=== PATIENT | male | born 1965 | race Caucasian/White ===

== ENCOUNTER 2018-09-16 21:37 | Inpatient (IN) | payer OTHER ==
[~2018-09-16] VITALS: Ht 180.3 cm; Wt 114.8 kg
[2018-09-17] VITALS (13 sets, daily range): BP systolic 118–154; BP diastolic 79–100
[2018-09-17] MEDS ORDERED: SODIUM CHLORIDE 0.9% 1000ML 1,000 ML IV SCH (02:29)
[2018-09-17] MEDS ORDERED: DEXTROSE 50%-WATER 50 ML DISP.SYRIN IV PRN (02:30)
[2018-09-17] MEDS ORDERED: GLUCAGON 1MG KIT 1 MG ML IM PRN (02:30)
[2018-09-17] MEDS ORDERED: ONDANSETRON HCL 4 MG/2 ML VIAL IV PRN (02:30)
[2018-09-17] MEDS ORDERED: ENOX40DI9 SQ (02:54)
[2018-09-17] MEDS ORDERED: MULT-1203 PO (02:54)
[2018-09-17] MEDS ORDERED: PIPE3.3712 IV (02:54)
[2018-09-17] MEDS ORDERED: DILT30TA3 PO (02:54)
[2018-09-17] MEDS ORDERED: FOLI1TAB15 PO (02:54)
[2018-09-17] MEDS ORDERED: WARF-57 PO (02:54)
[2018-09-17] MEDS ORDERED: METO50TA18 PO (02:54)
[2018-09-17] MEDS ORDERED: THIAM100TB PO (02:54)
[2018-09-17] MEDS ORDERED: VANC1IVPB IV (02:54)
[2018-09-17] MEDS ORDERED: WARF10TA45 PO (02:55)
[2018-09-17] MEDS ORDERED: ONDA4VIA22 IV (03:07)
[2018-09-17] MEDS ORDERED: LORA2VIA8 IV ×2 (03:07)
[2018-09-17] MEDS ORDERED: ACET325T51 PO (03:07)
[2018-09-17] MEDS ORDERED: [UNRECOGNIZED DRUG - OTHER] TP (03:07)
[2018-09-17] MEDS ORDERED: VANCOMYCIN 1GM+NS 250ML IV SCH (03:30)
[2018-09-17] MEDS ORDERED: LORAZEPAM 2 MG/ML 1 ML VIAL IVP PRN ×2 (03:30)
[2018-09-17 04:05] LABS: HEMATOCRIT 42.9 % (42-54); MEAN CORPUSCULAR HEMOGLOBIN 32.1 pg (27.0-33.0); MEAN CORPUSCULAR HGB CONC 33.8 g/dL (32.0-36.0); MEAN CORPUSCULAR VOLUME 95.1 fL (79-99); PLATELET COUNT (AUTO) 360 K/uL (130-400); RED CELL DISTRIBUTION WIDTH 12.9 % (11.0-15.5)
[2018-09-17 04:23] LABS: INR 1.03 (0.85-1.15); PARTIAL THROMBOPLASTIN TIME 30.1 SEC (26.3-35.5); PROTHROMBIN TIME 10.8 SEC (9.6-11.6)
[2018-09-17 04:33] LABS: ALBUMIN 2.2 g/dL (3.5-5.0); BILIRUBIN,TOTAL 0.3 mg/dL (0.2-1.0); CREATININE 1.2 mg/dL (0.5-1.5); MAGNESIUM 1.3 mg/dL (1.80-2.40); POTASSIUM 3.5 mmol/L (3.5-5.1); TOTAL PROTEIN, SERUM 7.1 g/dL (6.0-8.3)
[2018-09-17] MEDS: VANCOMYCIN 1GM+NS 250ML 250 ML IV SCH ×2 (05:11→22:09)
[2018-09-17] MEDS: ZOSYN 3.375GM+NS 50ML 50 ML IV SCH ×4 (05:37→22:19)
[2018-09-17] MEDS ORDERED: VANCOMYCIN PROTOCOL PER PHARMACY IV SCH (05:45)
[2018-09-17] MEDS: INSULIN HUMULIN R 100 UNIT/ML 3ML SQ SCH ×2 (05:54→22:27)
[2018-09-17] MEDS: DILTIAZEM HCL 60 MG TABLET PO SCH ×3 (05:54→22:16)
[2018-09-17] MEDS: FOLIC ACID 1 MG TABLET PO SCH (08:49)
[2018-09-17] MEDS: PANTOPRAZOLE SODIUM 40 MG TABLET.DR PO SCH (08:50)
[2018-09-17] MEDS: MULTIVITAMIN TABLET PO SCH (08:50)
[2018-09-17] MEDS: THIAMINE HCL 100 MG TABLET PO SCH (08:50)
[2018-09-17] MEDS ORDERED: FAMOTIDINE 20MG TAB 20 MG TAB PO SCH (09:00)
[2018-09-17] MEDS ORDERED: METOPROLOL TARTRATE 50 MG TAB PO SCH (09:00)
[2018-09-17] MEDS ORDERED: LIDOCAINE HCL 2% 20ML ONE (09:40)
[2018-09-17] MEDS ORDERED: MIDAZOLAM HCL 1 MG/ML 2ML VIAL ONE ×3 (10:23→10:43)
[2018-09-17] MEDS ORDERED: MEPERIDINE-PF 25 MG/ML SYG ONE ×3 (10:23→10:43)
[2018-09-17] MEDS ORDERED: RIVAROXABAN 20 MG TABLET PO SCH (19:00)
[2018-09-17] MEDS ORDERED: WARFARIN SODIUM 10 MG TABLET PO SCH (21:00)
[2018-09-18] MEDS: DILTIAZEM HCL 60 MG TABLET PO SCH ×2 (01:13→05:22)
[2018-09-18 04:00] VITALS: BP 131/83
[2018-09-18] MEDS: VANCOMYCIN 1GM+NS 250ML 250 ML IV SCH ×2 (04:30→05:21)
[2018-09-18 05:03] LABS: EOSINOPHILS % (AUTO) 4.3 % (0.0-8.0); HEMATOCRIT 38.6 % (42-54); LYMPHOCYTES % (AUTO) 17.4 % (21.0-51.0); MEAN CORPUSCULAR HEMOGLOBIN 32.1 pg (27.0-33.0); MEAN CORPUSCULAR HGB CONC 33.7 g/dL (32.0-36.0); MEAN CORPUSCULAR VOLUME 95.3 fL (79-99); MONOCYTES % (AUTO) 9.7 % (3.0-13.0); NEUTROPHILS % (AUTO) 67.6 % (40.0-77.0); PLATELET COUNT (AUTO) 299 K/uL (130-400); RED BLOOD CELL COUNT(AUTO) 4.05 MIL/uL (4.50-6.20); WHITE BLOOD COUNT (AUTO) 10.7 K/uL (4.8-10.8)
[2018-09-18] MEDS: ZOSYN 3.375GM+NS 50ML 50 ML IV SCH ×2 (05:21→05:33)
[2018-09-18 05:26] LABS: ALBUMIN 2.2 g/dL (3.5-5.0); BILIRUBIN,DIRECT 0.1 mg/dL (0.0-0.3); BILIRUBIN,TOTAL 0.5 mg/dL (0.2-1.0); CREATININE 2.6 mg/dL (0.5-1.5); MAGNESIUM 1.4 mg/dL (1.80-2.40); POTASSIUM 3.7 mmol/L (3.5-5.1); TOTAL PROTEIN, SERUM 6.7 g/dL (6.0-8.3)
[2018-09-18] MEDS: INSULIN HUMULIN R 100 UNIT/ML 3ML SQ SCH ×4 (06:22→21:00)
[2018-09-18] MEDS: MAGNESIUM 2GM PREMIX 50ML 50 ML IV PRN (06:35)
[2018-09-18 07:33] VITALS: BP 138/92
[2018-09-18] MEDS: ACETAMINOPHEN 325 MG TAB PO PRN ×2 (08:12→18:40)
[2018-09-18 09:29] LABS: INR 1.18 (0.85-1.15); PARTIAL THROMBOPLASTIN TIME 37.3 SEC (26.3-35.5); PROTHROMBIN TIME 12.3 SEC (9.6-11.6)
[2018-09-18] MEDS: METOPROLOL TARTRATE 25 MG TAB PO SCH ×2 (10:12→19:49)
[2018-09-18] MEDS: PANTOPRAZOLE SODIUM 40 MG TABLET.DR PO SCH (10:12)
[2018-09-18] MEDS: THIAMINE HCL 100 MG TABLET PO SCH (10:12)
[2018-09-18] MEDS: FOLIC ACID 1 MG TABLET PO SCH (10:12)
[2018-09-18] MEDS: MULTIVITAMIN TABLET PO SCH (10:12)
[2018-09-18] MEDS: ENOXAPARIN SODIUM 120 MG/0.8ML SQ SCH (10:13)
[2018-09-18 11:23] VITALS: BP 142/92
[2018-09-18] MEDS: WARFARIN SODIUM 5 MG TAB PO SCH (16:09)
[2018-09-18 16:45] VITALS: BP 148/98
[2018-09-18] MEDS: CEFTRIAXONE SODIUM 1 GM IVP SCH (17:27)
[2018-09-18] MEDS: SODIUM CHLORIDE 0.9% 1000ML 1,000 ML IV SCH (17:28)
[2018-09-18 20:23] VITALS: BP 188/112
[2018-09-18] MEDS ORDERED: ZOSYN 3.375GM+NS 50ML 50 ML IV SCH (21:00)
[2018-09-18] MEDS: INSULIN GLARGINE 100 UNITS/ML 10 ML VIAL SQ SCH (21:35)
[2018-09-18] MEDS ORDERED: HYDRALAZINE HCL 20 MG/ML VIAL ONE (22:11)
[2018-09-18 23:32] VITALS: BP 150/94
[2018-09-18] MEDS: DIAZEPAM 2 MG TAB PO PRN (23:51)
[2018-09-19 04:08] VITALS: BP 158/98
[2018-09-19 04:16] LABS: INR 1.05 (0.85-1.15)
[2018-09-19 04:43] LABS: CREATININE 3.2 mg/dL (0.5-1.5); CRP QUANTITATIVE 40.4 mg/L (0.00-9.0); POTASSIUM 3.6 mmol/L (3.5-5.1)
[2018-09-19] MEDS: INSULIN HUMULIN R 100 UNIT/ML 3ML SQ SCH ×5 (06:49→21:00)
[2018-09-19] MEDS: SODIUM CHLORIDE 0.9% 1000ML 1,000 ML IV SCH ×2 (06:51→13:40)
[2018-09-19 07:30] VITALS: BP_SYST 156; BP_SYST 175; BP_DIAS 104; BP_DIAS 95
[2018-09-19] MEDS: METOPROLOL TARTRATE 25 MG TAB PO SCH ×2 (07:41→22:24)
[2018-09-19] MEDS: ENOXAPARIN SODIUM 120 MG/0.8ML SQ SCH (07:41)
[2018-09-19] MEDS: FOLIC ACID 1 MG TABLET PO SCH (07:41)
[2018-09-19] MEDS: MULTIVITAMIN TABLET PO SCH (07:42)
[2018-09-19] MEDS: PANTOPRAZOLE SODIUM 40 MG TABLET.DR PO SCH (07:42)
[2018-09-19] MEDS: DIAZEPAM 2 MG TAB PO PRN (07:42)
[2018-09-19] MEDS: THIAMINE HCL 100 MG TABLET PO SCH (07:42)
[2018-09-19] MEDS: ACETAMINOPHEN 325 MG TAB PO PRN (07:42)
[2018-09-19] MEDS ORDERED: [UNRECOGNIZED DRUG - OTHER] TP PRN (09:00)
[2018-09-19 09:40] LABS: PARTIAL THROMBOPLASTIN TIME 35.1 SEC (26.3-35.5)
[2018-09-19 09:55] LABS: INR 1.06 (0.85-1.15); PROTHROMBIN TIME 11.1 SEC (9.6-11.6)
[2018-09-19] MEDS: DIAZEPAM 5 MG TABLET ONE ×2 (10:26→10:32)
[2018-09-19] MEDS: GUAIFENESIN-CODEINE 5 ML SYRUP PO PRN ×2 (10:32→16:49)
[2018-09-19] MEDS ORDERED: DIAZEPAM 5 MG TABLET PO SCH (10:45)
[2018-09-19 11:13] VITALS: BP 157/95
[2018-09-19 16:23] VITALS: BP 175/94
[2018-09-19] MEDS: CEFTRIAXONE SODIUM 1 GM IVP SCH (16:48)
[2018-09-19] MEDS: WARFARIN SODIUM 5 MG TAB PO SCH (16:51)
[2018-09-19] MEDS: DIAZEPAM 5 MG TABLET PO SCH (17:01)
[2018-09-19 20:02] VITALS: BP 184/102
[2018-09-19] MEDS: DIAZEPAM 2 MG TAB PO SCH (20:30)
[2018-09-19] MEDS ORDERED: VANCOMYCIN 1GM+NS 250ML 250 ML IV SCH (21:00)
[2018-09-19] MEDS: INSULIN GLARGINE 100 UNITS/ML 10 ML VIAL SQ SCH (22:29)
[2018-09-19 23:47] VITALS: BP 184/113
[2018-09-20] MEDS: DIAZEPAM 5 MG TABLET PO SCH ×3 (00:34→16:46)
[2018-09-20] MEDS: SODIUM CHLORIDE 0.9% 1000ML 1,000 ML IV SCH ×2 (02:41→14:30)
[2018-09-20] MEDS: DIAZEPAM 2 MG TAB PO SCH ×2 (02:42→12:21)
[2018-09-20 04:05] VITALS: BP 151/104
[2018-09-20 04:33] LABS: HEMATOCRIT 39.8 % (42-54); MEAN CORPUSCULAR HEMOGLOBIN 30.7 pg (27.0-33.0); MEAN CORPUSCULAR HGB CONC 32.3 g/dL (32.0-36.0); MEAN CORPUSCULAR VOLUME 94.8 fL (79-99); PLATELET COUNT (AUTO) 321 K/uL (130-400); RED CELL DISTRIBUTION WIDTH 13.2 % (11.0-15.5); WHITE BLOOD COUNT (AUTO) 13.1 K/uL (4.8-10.8)
[2018-09-20 04:44] LABS: INR 1.06 (0.85-1.15); PARTIAL THROMBOPLASTIN TIME 33.9 SEC (26.3-35.5); PROTHROMBIN TIME 10.9 SEC (9.6-11.6)
[2018-09-20 04:58] LABS: CREATININE 2.9 mg/dL (0.5-1.5); MAGNESIUM 1.6 mg/dL (1.80-2.40); PHOSPHORUS 3.5 mg/dL (2.5-4.9); POTASSIUM 3.7 mmol/L (3.5-5.1)
[2018-09-20] MEDS: MAGNESIUM 2GM PREMIX 50ML 50 ML IV PRN (05:29)
[2018-09-20] MEDS: GUAIFENESIN-CODEINE 5 ML SYRUP PO PRN (05:53)
[2018-09-20] MEDS: INSULIN HUMULIN R 100 UNIT/ML 3ML SQ SCH ×4 (06:37→22:22)
[2018-09-20] MEDS: MULTIVITAMIN TABLET PO SCH (08:14)
[2018-09-20] MEDS: THIAMINE HCL 100 MG TABLET PO SCH (08:14)
[2018-09-20] MEDS: FOLIC ACID 1 MG TABLET PO SCH (08:14)
[2018-09-20 08:15] VITALS: BP 155/99
[2018-09-20] MEDS: METOPROLOL TARTRATE 25 MG TAB PO SCH ×2 (08:16→22:19)
[2018-09-20] MEDS: ENOXAPARIN SODIUM 120 MG/0.8ML SQ SCH (08:16)
[2018-09-20] MEDS: PANTOPRAZOLE SODIUM 40 MG TABLET.DR PO SCH (08:16)
[2018-09-20 09:20] LABS: INR 1.05 (0.85-1.15); PARTIAL THROMBOPLASTIN TIME 37.3 SEC (26.3-35.5)
[2018-09-20 11:42] VITALS: BP 158/102
[2018-09-20 16:00] VITALS: BP 137/83
[2018-09-20] MEDS: CEFTRIAXONE SODIUM 1 GM IVP SCH (16:46)
[2018-09-20] MEDS: WARFARIN SODIUM 5 MG TAB PO SCH (16:46)
[2018-09-20 21:21] VITALS: BP 153/100
[2018-09-20] MEDS: INSULIN GLARGINE 100 UNITS/ML 10 ML VIAL SQ SCH (22:21)
[2018-09-20] MEDS: ACETAMINOPHEN 325 MG TAB PO PRN (22:27)
[2018-09-21] VITALS (9 sets, daily range): BP systolic 145–182; BP diastolic 76–110
[2018-09-21] MEDS: DIAZEPAM 5 MG TABLET PO SCH ×3 (01:17→16:45)
[2018-09-21] MEDS: SODIUM CHLORIDE 0.9% 1000ML 1,000 ML IV SCH ×2 (02:44→10:30)
[2018-09-21 04:37] LABS: CREATININE 2.9 mg/dL (0.5-1.5); CRP QUANTITATIVE 166.8 mg/L (0.00-9.0); MAGNESIUM 2.1 mg/dL (1.80-2.40); PHOSPHORUS 3.6 mg/dL (2.5-4.9); POTASSIUM 3.5 mmol/L (3.5-5.1)
[2018-09-21 04:38] LABS: HEMATOCRIT 35.9 % (42-54); MEAN CORPUSCULAR HEMOGLOBIN 32.5 pg (27.0-33.0); MEAN CORPUSCULAR HGB CONC 34.2 g/dL (32.0-36.0); MEAN CORPUSCULAR VOLUME 95.1 fL (79-99); PLATELET COUNT (AUTO) 375 K/uL (130-400); RED BLOOD CELL COUNT(AUTO) 3.77 MIL/uL (4.50-6.20); RED CELL DISTRIBUTION WIDTH 12.8 % (11.0-15.5); WHITE BLOOD COUNT (AUTO) 11.6 K/uL (4.8-10.8)
[2018-09-21 04:39] LABS: INR 1.08 (0.85-1.15); PARTIAL THROMBOPLASTIN TIME 35.1 SEC (26.3-35.5); PROTHROMBIN TIME 11.1 SEC (9.6-11.6)
[2018-09-21 05:33] LABS: ERYTHROCYTE SEDIMENTATION RATE 101 MM/HR (0-20)
[2018-09-21] MEDS: INSULIN HUMULIN R 100 UNIT/ML 3ML SQ SCH ×4 (06:30→20:36)
[2018-09-21] MEDS: ENOXAPARIN SODIUM 120 MG/0.8ML SQ SCH (08:06)
[2018-09-21] MEDS: MULTIVITAMIN TABLET PO SCH (08:06)
[2018-09-21] MEDS: FOLIC ACID 1 MG TABLET PO SCH (08:06)
[2018-09-21] MEDS: PANTOPRAZOLE SODIUM 40 MG TABLET.DR PO SCH (08:06)
[2018-09-21] MEDS: THIAMINE HCL 100 MG TABLET PO SCH (08:06)
[2018-09-21] MEDS: METOPROLOL TARTRATE 25 MG TAB PO SCH ×2 (08:07→20:22)
[2018-09-21 09:31] LABS: INR 1.07 (0.85-1.15); PARTIAL THROMBOPLASTIN TIME 39.5 SEC (26.3-35.5); PROTHROMBIN TIME 11.2 SEC (9.6-11.6)
[2018-09-21] MEDS: HYDRALAZINE HCL 20 MG/ML VIAL IV PRN (13:49)
[2018-09-21] MEDS: ACETAMINOPHEN 325 MG TAB PO PRN (15:13)
[2018-09-21] MEDS: WARFARIN SODIUM 5 MG TAB PO SCH (16:20)
[2018-09-21] MEDS: GUAIFENESIN-CODEINE 5 ML SYRUP PO PRN (16:34)
[2018-09-21] MEDS: CEFTRIAXONE SODIUM 1 GM IVP SCH (18:03)
[2018-09-21] MEDS ORDERED: WARFARIN SODIUM 2.5 MG TAB PO ONE (19:45)
[2018-09-21] MEDS: LUBIPROSTONE 24 MCG CAP PO SCH (20:21)
[2018-09-21] MEDS: AMOXICILLIN/POTASSIUM CLAV 875-125 TABLET PO SCH (20:21)
[2018-09-21] MEDS: INSULIN GLARGINE 100 UNITS/ML 10 ML VIAL SQ SCH (20:40)
[2018-09-22] MEDS: DIAZEPAM 5 MG TABLET PO SCH (01:18)
[2018-09-22 03:19] VITALS: BP 131/84
[2018-09-22 04:09] LABS: HEMATOCRIT 37.5 % (42-54); MEAN CORPUSCULAR HEMOGLOBIN 31.2 pg (27.0-33.0); MEAN CORPUSCULAR HGB CONC 33.2 g/dL (32.0-36.0); NUCLEATED RED BLOOD CELLS 0.1 % (0.0-0.19); PLATELET COUNT (AUTO) 327 K/uL (130-400); RED BLOOD CELL COUNT(AUTO) 3.99 MIL/uL (4.50-6.20); RED CELL DISTRIBUTION WIDTH 12.7 % (11.0-15.5); WHITE BLOOD COUNT (AUTO) 11.8 K/uL (4.8-10.8)
[2018-09-22 04:25] LABS: INR 1.09 (0.85-1.15); PARTIAL THROMBOPLASTIN TIME 38.8 SEC (26.3-35.5); PROTHROMBIN TIME 11.4 SEC (9.6-11.6)
[2018-09-22 04:36] LABS: CREATININE 2.7 mg/dL (0.5-1.5); POTASSIUM 3.9 mmol/L (3.5-5.1)
[2018-09-22] MEDS: INSULIN HUMULIN R 100 UNIT/ML 3ML SQ SCH ×4 (06:17→21:00)
[2018-09-22] MEDS: AMOXICILLIN/POTASSIUM CLAV 875-125 TABLET PO SCH ×2 (07:29→17:30)
[2018-09-22 08:00] VITALS: BP 145/98
[2018-09-22] MEDS: FOLIC ACID 1 MG TABLET PO SCH (08:52)
[2018-09-22] MEDS: THIAMINE HCL 100 MG TABLET PO SCH (08:52)
[2018-09-22] MEDS: PANTOPRAZOLE SODIUM 40 MG TABLET.DR PO SCH (08:52)
[2018-09-22] MEDS: LUBIPROSTONE 24 MCG CAP PO SCH ×2 (08:53→17:00)
[2018-09-22] MEDS: MULTIVITAMIN TABLET PO SCH (08:53)
[2018-09-22] MEDS: METOPROLOL TARTRATE 25 MG TAB PO SCH (08:53)
[2018-09-22] MEDS: ACETAMINOPHEN 325 MG TAB PO PRN ×2 (08:53→21:23)
[2018-09-22] MEDS: ENOXAPARIN SODIUM 120 MG/0.8ML SQ SCH (08:54)
[2018-09-22 11:00] VITALS: BP 150/92
[2018-09-22 16:00] VITALS: BP 152/96
[2018-09-22] MEDS ORDERED: WARFARIN SODIUM 7.5 MG TAB PO SCH (16:00)
[2018-09-22] MEDS ORDERED: DIAZEPAM 2 MG TAB PO PRN (16:45)
[2018-09-22] MEDS ORDERED: COMPOUND IV REFRIGERATED 1 EACH IVSOLN MISC PRN (17:45)
[2018-09-22] MEDS ORDERED: VANCOMYCIN PROTOCOL PER PHARMACY IV SCH (17:45)
[2018-09-22] MEDS: VANCOMYCIN 1.5 GM in SODIUM CHLORIDE 0.9% 250 ML IV SCH (18:43)
[2018-09-22] MEDS ORDERED: RENAL DOSE IV PRN (19:45)
[2018-09-22 20:00] VITALS: BP 170/100
[2018-09-22] MEDS: METOPROLOL TARTRATE 50 MG TAB PO SCH (20:07)
[2018-09-22] MEDS: DOXYCYCLINE 100MG+NS 250ML 250 ML IV SCH (20:07)
[2018-09-22] MEDS: MEROPENEM 500 MG VIAL IVP SCH (20:07)
[2018-09-22] MEDS: INSULIN GLARGINE 100 UNITS/ML 10 ML VIAL SQ SCH (21:24)
[2018-09-23 00:05] VITALS: BP 135/74
[2018-09-23] MEDS: MEROPENEM 500 MG VIAL IVP SCH ×3 (03:30→17:13)
[2018-09-23] MEDS: HYDRALAZINE HCL 20 MG/ML VIAL IV PRN ×2 (03:45→23:52)
[2018-09-23 04:00] VITALS: BP 154/96
[2018-09-23 04:39] LABS: HEMATOCRIT 39.4 % (42-54); MEAN CORPUSCULAR HEMOGLOBIN 31.4 pg (27.0-33.0); MEAN CORPUSCULAR HGB CONC 33.5 g/dL (32.0-36.0); MEAN CORPUSCULAR VOLUME 93.5 fL (79-99); NUCLEATED RED BLOOD CELLS 0.1 % (0.0-0.19); PLATELET COUNT (AUTO) 400 K/uL (130-400); RED BLOOD CELL COUNT(AUTO) 4.21 MIL/uL (4.50-6.20); RED CELL DISTRIBUTION WIDTH 12.9 % (11.0-15.5); WHITE BLOOD COUNT (AUTO) 11.1 K/uL (4.8-10.8)
[2018-09-23 05:06] LABS: CREATININE 2.7 mg/dL (0.5-1.5); CRP QUANTITATIVE 140.2 mg/L (0.00-9.0); POTASSIUM 3.6 mmol/L (3.5-5.1)
[2018-09-23 05:37] LABS: ERYTHROCYTE SEDIMENTATION RATE 104 MM/HR (0-20)
[2018-09-23] MEDS: ACETAMINOPHEN 325 MG TAB PO PRN (05:55)
[2018-09-23] MEDS: INSULIN HUMULIN R 100 UNIT/ML 3ML SQ SCH ×4 (06:10→21:00)
[2018-09-23 07:49] VITALS: BP 137/88
[2018-09-23 08:20] LABS: INR 1.27 (0.85-1.15); PARTIAL THROMBOPLASTIN TIME 39.7 SEC (26.3-35.5); PROTHROMBIN TIME 13.3 SEC (9.6-11.6)
[2018-09-23] MEDS: FOLIC ACID 1 MG TABLET PO SCH (09:01)
[2018-09-23] MEDS: ENOXAPARIN SODIUM 120 MG/0.8ML SQ SCH (09:01)
[2018-09-23] MEDS: MULTIVITAMIN TABLET PO SCH (09:02)
[2018-09-23] MEDS: THIAMINE HCL 100 MG TABLET PO SCH (09:02)
[2018-09-23] MEDS: LUBIPROSTONE 24 MCG CAP PO SCH ×2 (09:02→17:12)
[2018-09-23] MEDS: HYDROCHLOROTHIAZIDE 25 MG TABLET PO SCH (09:02)
[2018-09-23] MEDS: PANTOPRAZOLE SODIUM 40 MG TABLET.DR PO SCH (09:02)
[2018-09-23] MEDS: DOXYCYCLINE 100MG+NS 250ML 250 ML IV SCH ×2 (09:02→20:12)
[2018-09-23] MEDS: METOPROLOL TARTRATE 50 MG TAB PO SCH ×2 (09:02→20:12)
[2018-09-23 12:00] VITALS: BP 123/75
[2018-09-23 16:00] VITALS: BP 148/88
[2018-09-23] MEDS ORDERED: WARFARIN SODIUM 2 MG TAB PO SCH (16:00)
[2018-09-23] MEDS ORDERED: WARFARIN SODIUM 5 MG TAB PO SCH (16:00)
[2018-09-23] MEDS: VANCOMYCIN 1.5 GM in SODIUM CHLORIDE 0.9% 250 ML IV SCH (17:14)
[2018-09-23 20:00] VITALS: BP 166/106
[2018-09-23] MEDS: INSULIN GLARGINE 100 UNITS/ML 10 ML VIAL SQ SCH (21:05)
[2018-09-24] VITALS (7 sets, daily range): BP systolic 117–161; BP diastolic 73–106
[2018-09-24] MEDS: MEROPENEM 500 MG VIAL IVP SCH ×3 (03:22→19:49)
[2018-09-24] MEDS: INSULIN HUMULIN R 100 UNIT/ML 3ML SQ SCH ×4 (06:02→20:26)
[2018-09-24] MEDS: THIAMINE HCL 100 MG TABLET PO SCH (07:51)
[2018-09-24] MEDS: METOPROLOL TARTRATE 50 MG TAB PO SCH ×2 (07:51→20:25)
[2018-09-24] MEDS: HYDROCHLOROTHIAZIDE 25 MG TABLET PO SCH (07:51)
[2018-09-24] MEDS: MULTIVITAMIN TABLET PO SCH (07:51)
[2018-09-24] MEDS: FOLIC ACID 1 MG TABLET PO SCH (07:51)
[2018-09-24] MEDS: PANTOPRAZOLE SODIUM 40 MG TABLET.DR PO SCH (07:51)
[2018-09-24] MEDS: DOXYCYCLINE 100MG+NS 250ML 250 ML IV SCH ×2 (08:03→20:25)
[2018-09-24 09:08] LABS: EOSINOPHILS % (AUTO) 7.5 % (0.0-8.0); HEMATOCRIT 39.7 % (42-54); LYMPHOCYTES % (AUTO) 17.7 % (21.0-51.0); MEAN CORPUSCULAR HEMOGLOBIN 30.5 pg (27.0-33.0); MEAN CORPUSCULAR HGB CONC 32.6 g/dL (32.0-36.0); MEAN CORPUSCULAR VOLUME 93.5 fL (79-99); NEUTROPHILS % (AUTO) 62.8 % (40.0-77.0); PLATELET COUNT (AUTO) 348 K/uL (130-400); RED BLOOD CELL COUNT(AUTO) 4.25 MIL/uL (4.50-6.20); RED CELL DISTRIBUTION WIDTH 13.1 % (11.0-15.5); WHITE BLOOD COUNT (AUTO) 10.3 K/uL (4.8-10.8)
[2018-09-24 09:26] LABS: CREATININE 2.5 mg/dL (0.5-1.5); POTASSIUM 3.5 mmol/L (3.5-5.1)
[2018-09-24 09:28] LABS: INR 1.49 (0.85-1.15); PARTIAL THROMBOPLASTIN TIME 40.6 SEC (26.3-35.5); PROTHROMBIN TIME 15.5 SEC (9.6-11.6)
[2018-09-24] MEDS: LUBIPROSTONE 24 MCG CAP PO SCH ×2 (10:42→15:55)
[2018-09-24] MEDS: ENOXAPARIN SODIUM 120 MG/0.8ML SQ SCH (10:45)
[2018-09-24] MEDS: GUAIFENESIN-CODEINE 5 ML SYRUP PO PRN (12:42)
[2018-09-24] MEDS: METOPROLOL TARTRATE 1 MG/ML 5ML VIAL IV PRN ×2 (12:43→14:07)
[2018-09-24] MEDS ORDERED: DIGOXIN 250 MCG/ML 2ML AMP IV SCH (14:00)
[2018-09-24] MEDS ORDERED: METOPROLOL TARTRATE 1 MG/ML 5ML VIAL IV PRN (14:00)
[2018-09-24] MEDS ORDERED: WARFARIN SODIUM 10 MG TABLET PO SCH (16:00)
[2018-09-24] MEDS: VANCOMYCIN 1.5 GM in SODIUM CHLORIDE 0.9% 250 ML IV SCH (18:29)
[2018-09-24] MEDS: DIGOXIN 250 MCG/ML 2ML AMP IV SCH ×2 (18:29→22:58)
[2018-09-24] MEDS: INSULIN GLARGINE 100 UNITS/ML 10 ML VIAL SQ SCH (20:27)
[2018-09-25 04:00] VITALS: BP 109/69
[2018-09-25 04:47] LABS: BASOPHILS % (AUTO) 2.4 % (0.0-5.0); EOSINOPHILS % (AUTO) 9.1 % (0.0-8.0); HEMATOCRIT 39.3 % (42-54); LYMPHOCYTES % (AUTO) 23.6 % (21.0-51.0); MEAN CORPUSCULAR HEMOGLOBIN 32.1 pg (27.0-33.0); MEAN CORPUSCULAR HGB CONC 34.5 g/dL (32.0-36.0); MEAN CORPUSCULAR VOLUME 92.9 fL (79-99); MONOCYTES % (AUTO) 8.3 % (3.0-13.0); NEUTROPHILS % (AUTO) 56.6 % (40.0-77.0); PLATELET COUNT (AUTO) 406 K/uL (130-400); RED BLOOD CELL COUNT(AUTO) 4.24 MIL/uL (4.50-6.20); RED CELL DISTRIBUTION WIDTH 12.7 % (11.0-15.5); WHITE BLOOD COUNT (AUTO) 11.5 K/uL (4.8-10.8)
[2018-09-25] MEDS: MEROPENEM 500 MG VIAL IVP SCH ×2 (04:50→11:48)
[2018-09-25 04:59] LABS: CREATININE 2.4 mg/dL (0.5-1.5); INR 2.03 (0.85-1.15); PARTIAL THROMBOPLASTIN TIME 46.9 SEC (26.3-35.5); POTASSIUM 3.7 mmol/L (3.5-5.1)
[2018-09-25] MEDS: INSULIN HUMULIN R 100 UNIT/ML 3ML SQ SCH ×3 (06:05→16:30)
[2018-09-25 08:00] VITALS: BP 151/100
[2018-09-25] MEDS: PANTOPRAZOLE SODIUM 40 MG TABLET.DR PO SCH (08:42)
[2018-09-25] MEDS: THIAMINE HCL 100 MG TABLET PO SCH (08:42)
[2018-09-25] MEDS: METOPROLOL TARTRATE 50 MG TAB PO SCH (08:42)
[2018-09-25] MEDS: FOLIC ACID 1 MG TABLET PO SCH (08:42)
[2018-09-25] MEDS: DOXYCYCLINE 100MG+NS 250ML 250 ML IV SCH (08:42)
[2018-09-25] MEDS: MULTIVITAMIN TABLET PO SCH (08:42)
[2018-09-25] MEDS: HYDROCHLOROTHIAZIDE 25 MG TABLET PO SCH (08:42)
[2018-09-25] MEDS: LUBIPROSTONE 24 MCG CAP PO SCH (08:56)
[2018-09-25] MEDS: ENOXAPARIN SODIUM 120 MG/0.8ML SQ SCH (08:59)
[2018-09-25 12:00] VITALS: BP 151/112
[2018-09-25] MEDS ORDERED: METO-482 PO (16:00)
[2018-09-25] MEDS ORDERED: WARFARIN SODIUM 5 MG TAB PO SCH (16:00)
== END 2018-09-25 17:09 | disposition home or self-care (01) | DRG 308 ==
LOC: EDHIP 09-17 01:05 → OBSVTOIN 09-17 01:05 → 2DH 09-17 01:16 → 4BH 09-21 12:25
PROVIDERS: ADMIT Internal Medicine; ATTEND Internal Medicine
PROC: 4A0234Z Measurement of Cardiac Electrical Activity, Percutaneous Approach (ICD-10-PCS; principal; 2018-09-17)
DX: I48.3 Typical atrial flutter (principal); J15.0 Pneumonia due to Klebsiella pneumoniae; L03.116 Cellulitis of left lower limb; D68.59 Other primary thrombophilia; F10.231 Alcohol dependence with withdrawal delirium; N17.9 Acute kidney failure, unspecified; I48.0 Paroxysmal atrial fibrillation; E11.22 Type 2 diabetes mellitus with diabetic chronic kidney disease; E66.9 Obesity, unspecified; E78.5 Hyperlipidemia, unspecified; E11.51 Type 2 diabetes mellitus with diabetic peripheral angiopathy without gangrene; E83.42 Hypomagnesemia; I12.9 Hypertensive chronic kidney disease with stage 1 through stage 4 chronic kidney disease, or unspecified chronic kidney disease; I25.10 Atherosclerotic heart disease of native coronary artery without angina pectoris; K59.03 Drug induced constipation; N18.9 Chronic kidney disease, unspecified; I48.2 Chronic atrial fibrillation; T40.2X5A Adverse effect of other opioids, initial encounter; Y92.89 Other specified places as the place of occurrence of the external cause; Z79.01 Long term (current) use of anticoagulants; Z79.02 Long term (current) use of antithrombotics/antiplatelets; Z87.891 Personal history of nicotine dependence; Z91.19 Patient's noncompliance with other medical treatment and regimen; Z83.3 Family history of diabetes mellitus; Z80.9 Family history of malignant neoplasm, unspecified
CPT/HCPCS: 36415; 71045; 71046; 80048; 80053; 80061; 80076; 80202; 82550; 82948; 83036; 83735; 83874; 84100; 85025; 85027; 85610; 85651; 85730; 86140; 87071; 87077; 87186; 87205; 87633; 93005; 93613; 93621; 93653; 93926; 93971; 99156; 99157; A4218; C1730; C1732; C1894; G0378; J0360; J0696; J1160; J1644; J1650; J1815; J2175; J2185; J2250; J2543; J3370; J3475; J3490; J7030

== ENCOUNTER → 2024-03-14 | Outpatient (CLI) | payer MEDICAID ==
[~2024-03-14] MED LIST: ACET325T51 PO; FOLI1TAB15 PO; METO-482 PO; MULT-1203 PO; THIAM100TB PO; WARF10TA45 PO; [UNRECOGNIZED DRUG - OTHER] TP
[2024-03-14 12:18] LABS: BASOPHILS # (AUTO) 0.09 K/uL (0.00-0.20); BASOPHILS % (AUTO) 0.7 % (0.0-5.0); EOSINOPHILS # (AUTO) 0.25 K/uL (0.00-0.70); EOSINOPHILS % (AUTO) 1.8 % (0.0-8.0); HEMATOCRIT 51.6 % (42-54); IMMATURE GRANULOCYTE ABSOLUTE 0.12 K/uL (0-1); LYMPHOCYTES # (AUTO) 2.5 K/uL (1.0-4.8); LYMPHOCYTES % (AUTO) 18.2 % (21.0-51.0); MEAN CORPUSCULAR HEMOGLOBIN 29.8 pg (27.0-33.0); MEAN CORPUSCULAR HGB CONC 33.5 g/dL (32.0-36.0); MEAN CORPUSCULAR VOLUME 88.8 fL (79-99); MONOCYTES # (AUTO) 0.8 K/uL (0.1-1.0); NEUTROPHILS # (AUTO) 9.8 K/uL (1.8-7.7); NEUTROPHILS % (AUTO) 72.4 % (40.0-77.0); PLATELET COUNT (AUTO) 243 K/uL (130-400); RED BLOOD CELL COUNT(AUTO) 5.81 MIL/uL (4.50-6.20); RED CELL DISTRIBUTION WIDTH 13.7 % (11.0-15.5); WHITE BLOOD COUNT (AUTO) 13.6 K/uL (4.8-10.8)
[2024-03-14 12:28] LABS: INR <= 0.93 (0.85-1.15); PROTHROMBIN TIME 10.7 SEC (9.6-11.6)
[2024-03-14 12:30] LABS: PARTIAL THROMBOPLASTIN TIME 28.6 SEC (26.3-35.5)
[2024-03-14 12:41] LABS: POTASSIUM 4.5 mmol/L (3.5-5.1)
== END | disposition home or self-care (01) ==
LOC: LAB 09:06
PROVIDERS: ATTEND Internal Medicine Cardiovascular Disease
DX: I87.2 Venous insufficiency (chronic) (peripheral) (principal); R06.00 Dyspnea, unspecified; L97.929 Non-pressure chronic ulcer of unspecified part of left lower leg with unspecified severity; Z79.01 Long term (current) use of anticoagulants; Z79.899 Other long term (current) drug therapy
CPT/HCPCS: 36415; 80048; 80061; 85025; 85610; 85730

== ENCOUNTER 2024-11-10 08:40 | Day surgery (SDC) | payer MEDICAID ==
[2024-11-08 13:56] LABS: BASOPHILS # (AUTO) 0.08 K/uL (0.00-0.20); BASOPHILS % (AUTO) 0.7 % (0.0-5.0); EOSINOPHILS # (AUTO) 0.24 K/uL (0.00-0.70); EOSINOPHILS % (AUTO) 2.1 % (0.0-8.0); HEMATOCRIT 45.7 % (42-54); IMMATURE GRANULOCYTE ABSOLUTE 0.12 K/uL (0-1); LYMPHOCYTES # (AUTO) 2.4 K/uL (1.0-4.8); LYMPHOCYTES % (AUTO) 20.7 % (21.0-51.0); MEAN CORPUSCULAR HEMOGLOBIN 30.4 pg (27.0-33.0); MEAN CORPUSCULAR VOLUME 92.1 fL (79-99); MONOCYTES # (AUTO) 0.8 K/uL (0.1-1.0); MONOCYTES % (AUTO) 6.9 % (3.0-13.0); NEUTROPHILS # (AUTO) 7.8 K/uL (1.8-7.7); NEUTROPHILS % (AUTO) 68.6 % (40.0-77.0); PLATELET COUNT (AUTO) 300 K/uL (130-400); RED BLOOD CELL COUNT(AUTO) 4.96 MIL/uL (4.50-6.20); RED CELL DISTRIBUTION WIDTH 13.2 % (11.0-15.5); WHITE BLOOD COUNT (AUTO) 11.4 K/uL (4.8-10.8)
[2024-11-08 14:05] LABS: CREATININE 2.8 mg/dL (0.5-1.3)
[2024-11-08 14:22] LABS: INR <= 0.93 (0.85-1.15); PROTHROMBIN TIME 10.4 SEC (9.6-11.6)
[2024-11-08 14:23] VITALS: BP 158/85; PULSE 96; RESP 18; TEMP 97.9
[2024-11-08 14:23] LABS: PARTIAL THROMBOPLASTIN TIME 29.1 SEC (26.3-35.5)
--- NOTE | 2024-11-08 14:32 | EKG ---
[facility] Test Date: 2024-11-08 Test Time: 14:22:02 Pat Name: CAMACHO MICHAEL Department: [facility] Room: Gender: M Drafter Electrical: [id number] : [id number] Requested By: SHANITA GANNON Order Number: [id number] Reading MD: Myke Latif Measurements Intervals [place] Rate: 84 P: 23 [place]: 118 QRS: 48 QRSD: 101 T: 76 QT: 362 QTc: 429 Interpretive Statements Sinus rhythm ST elevation, consider inferior injury Compared to ECG 09/18/2018 09:55:11 ST (T wave) deviation now present Myocardial infarct finding now present Electronically Signed On 11-09-2024 20:01:45 MISSILE [employer] REPAIRER by Myke Latif Please click the below link to view image of tracing.
[2024-11-08 14:36] LABS: APPEARANCE,URINE CLOUDY (CLEAR); BILIRUBIN,URINE NEGATIVE (NEGATIVE); COLOR,URINE LIGHT-YELLOW (YELLOW); GLUCOSE, URINE (UA) >=1000 mg/dL (NEGATIVE); KETONES,URINE NEGATIVE (NEGATIVE); LEUKOCYTE ESTERASE ,URINE 500 Leu/uL (NEGATIVE); NITRATE,URINE NEGATIVE (NEGATIVE); OCCULT BLOOD,URINE SMALL (NEGATIVE); PROTEIN,URINE 600 mg/dL (NEGATIVE); UROBILINOGEN,URINE 0.2 mg/dL (0.2-1.0)
[2024-11-08 14:37] LABS: ADD UA MICROSCOPIC YES
[2024-11-08 14:44] LABS: BACTERIA,URINE RARE /HPF (None Seen); MUCUS,URINE RARE LPF (None Seen); SQUAMOUS EPITHELIAL CELL,UR FEW /HPF (0-2); TRANSITIONAL EPI CELLS,URINE RARE /HPF (None Seen); WBC,URINE 51-100 /HPF (0-1)
--- NOTE | 2024-11-08 14:51 | HMCIMG ---
CHEST 1VW REASON: PREOP COMPARISON: 09/23/2018 FINDINGS: Single view of the chest was obtained. Lungs are clear. Heart size is normal. There is no pulmonary vascular congestion. Mediastinum and bony thorax appear unremarkable. IMPRESSION: 1. Normal single view chest x-ray.
[2024-11-08 14:58] LABS: B-TYPE NATRIURETIC PEPTIDE 76 pg/mL (0-100)
--- NOTE | 2024-11-09 17:27 | NUR ---
report faxed over cbc/bmp/ua/cx to dr henry. ok to proceed as per jessica painting.
[2024-11-10] VITALS (14 sets, daily range): BP systolic 134–157; BP diastolic 72–95; PULSE 50–99; RESP 12–21; TEMP 97.1–97.9
[~2024-11-10] VITALS: Ht 177.8 cm; Wt 108.6 kg
[~2024-11-10 08:40] MED LIST changes: -ACET325T51 PO; +APIX5TAB PO; +ATOR10TA69 PO; +DOCU-280 PO; +EMPA10TA PO; -FOLI1TAB15 PO; +INSU300I3 SQ; +LINA5TAB PO; -METO-482 PO; -MULT-1203 PO; -THIAM100TB PO; -WARF10TA45 PO; -[UNRECOGNIZED DRUG - OTHER] TP
[2024-11-10] MEDS: 0.9%NACL 1000ML 1,000 ML IV SCH (10:20)
[2024-11-10] MEDS ORDERED: FENTanyl CITRate PF 50 MCG/1 ML 2ML VIAL ONE (11:36)
[2024-11-10] MEDS ORDERED: LIDOCAINE HCL 400MG/20ML VIAL ONE (11:36)
[2024-11-10] MEDS ORDERED: MIDAZOLAM HCL 1 MG/ML 2ML VIAL ONE (11:36)
[2024-11-10] MEDS ORDERED: NITROGLYCERIN 50MG VIAL ONE (11:37)
[2024-11-10] MEDS ORDERED: HEParin-NS 1,000 UNIT/500 ML 1,000 ML IV ONE (11:37)
[2024-11-10] MEDS ORDERED: IOHEXOL 350 MG/ML 100ML INFUS..BTL IV ONE (11:37)
[2024-11-10] MEDS ORDERED: niCARDIpine 25MG INJ IV ONE (11:37)
[2024-11-10] MEDS ORDERED: HEParin 10,000 UNIT/10ML (1,000 UNIT/ML) VIAL ONE (11:37)
[2024-11-10] MEDS ORDERED: SODIUM BICARB 50MEQ 50ML VIAL 50 ML ONE (11:42)
[2024-11-10] MEDS ORDERED: 0.9%NACL 1000ML 1,000 ML IV SCH (13:30)
--- NOTE | 2024-11-10 15:55 | NUR ---
VASC BAND REMOVED VASC BAND. APPLIED CHLORA PREP FOLLOWED BY PLACING A 2X2 STERILE GAUZE AND WRAPPING A TEGADERM IN PLACE. NO ACTIVE BLEEDING, SWELLING , OR REDNEES NOTED TO THE SITE.
--- NOTE | 2024-11-10 16:51 | NUR ---
REPORT REPORT GIVEN AT NURSES STATION TO MALOU QUILES. PATIENT STABLE AND AWAKE. BED LOW AND LOCKED. CALL LIGHT AT BEDSIDE.
--- NOTE | 2024-11-10 17:57 | NUR ---
PATIENT DISCHARGED FROM FACILITY VIA WHEELCHAIR BY NURSE AND ASSISTED INTO PRIVATE VEHICLE DRIVEN BY BROTHER
--- NOTE | 2024-11-11 13:00 | PRN ---
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 Under local anesthesia with 1% lidocaine right radial access was gained and a cocktail of 5000 units aqueous heparin, 200 mcg nitroglycerin and 200 mcg Cardene was administered via the arterial sheath. Selective right and left coronary arteriogram were obtained with six Amharic TIGG catheter and the catheter was then removed and hemostasis was obtained by use of a Vasc band. No complications occurred Results: This is a right-dominant system. The right coronary supplies a posterior descending and a large posterolateral branch. The right coronary is ectatic and measures about 5 mm in its vertical portion and about 4.5 mm just before the crux. There is a 45% narrowing at the acute margin which leaves the vessel with a 2.7 mm MLD, and there is a 50% bifurcation lesion compromise of the posterior descending and posterolateral branch which leaves the vessel with about a 2 mm MLD. The left main is free of disease The left anterior descending is also ectatic, measuring about 5 mm proximally. The 1st diagonal is a large vessel which bifurcates twice as it courses over the anterolateral wall and it is nearby 30% at its origin. After the 1st diagonal and 1st septal stringer up soldering machine there is a radiolucent 50% narrowing in the mid LAD which leaves the vessel with a about a 2 mm MLD. Just beyond this lesion the vessel tapers to 3 mm and in the apical 3rd the LAD measures about 2.4 mm diameter. The circumflex measures about 5 mm in its proximal portion, then gives rise to a small 1st obtuse marginal and then a 25% narrowing after the 1st OM. At this point the circumflex measures about 3.8 mm and it supplies a 2nd obtuse marginal and a terminal branch. Conclusions: There does not appear to be hemodynamically restrictive disease, even though there are lesions of as much as 50% in large caliber ectatic vessels. SHANITA GANNON MD Nov 11, 2024 13:00
== END 2024-11-10 17:58 | disposition home or self-care (01) ==
LOC: DAH 08:40
PROVIDERS: ATTEND Internal Medicine Cardiovascular Disease
DX: I25.118 Atherosclerotic heart disease of native coronary artery with other forms of angina pectoris (principal); I25.84 Coronary atherosclerosis due to calcified coronary lesion; R94.39 Abnormal result of other cardiovascular function study; I48.0 Paroxysmal atrial fibrillation; E78.2 Mixed hyperlipidemia; E11.22 Type 2 diabetes mellitus with diabetic chronic kidney disease; I13.0 Hypertensive heart and chronic kidney disease with heart failure and stage 1 through stage 4 chronic kidney disease, or unspecified chronic kidney disease; N18.32 Chronic kidney disease, stage 3b; I50.22 Chronic systolic (congestive) heart failure; E11.42 Type 2 diabetes mellitus with diabetic polyneuropathy; I87.1 Compression of vein; R60.9 Edema, unspecified; Z79.01 Long term (current) use of anticoagulants; Z87.898 Personal history of other specified conditions; Z79.899 Other long term (current) drug therapy; Z82.49 Family history of ischemic heart disease and other diseases of the circulatory system; Z95.820 Peripheral vascular angioplasty status with implants and grafts
CPT/HCPCS: 80048; 83880; 85025; 85610; 85730; 87086; 81001; 36415; 71045; 93005; 93454; 82948 ×2; A4223 ×3; Q9965 ×2; C1887 ×2; C1769; C1894; A4649; J3010; J3490 ×4; J1644 ×2; J2250; Q9967; A4215 ×2; A4222; A6260; A4221; A4663; A4216; A6206 ×2; A4606; 96360; 96361; 99156; 99157